=== PATIENT | female | born 1970 | race Caucasian/White ===

== ENCOUNTER → 2017-01-23 | Outpatient (CLI) | payer OTHER ==
[~2017-01-23] MED LIST: ALBUTEROL17 GM INH; NO MEDICATIONS; ZYRTEC10 M2
--- NOTE | ~2017-01-23 | CR169 ---
[facility]. [facility] A Service of [facility] & [facility] RADIOLOGY TEXT RESULTS PATIENT: KAVEH MARK LOCATION: [facility] : 68 UNIT #: [id number] AGE: [address]: TAI BRITO MD SEX: F ORDER DR: [id number] [place] [id number] MR#: [id number] Acc #: [id number] NAME: KAVEH MARK : 1970 SEX: F STUDY DATE/TIME: 01/23/2017 10:58 [facility] RO[facility]: STUDY DESCRIPTION: CR Knee 2 Views Lt Attending Physician: Tai Brito M.D. Referring Physician: Tai Brito M.D. Ordering Physician: Tai Brito M.D. Primary Care Physician: Dayton Avina M.D. MEDICAL IMAGING REPORT This report is preliminary unless electronic signature is present. EXAM Left knee 2 views 01/23/2017. HISTORY Left knee pain for 1 year. No known injury. Arthritis, unsteady gait. FINDINGS AP and lateral projection of the knee shows smooth articular anatomy without indication of fracture or dislocation at the major weight-bearing surface of the knee. There is no indication of radiopaque foreign body about the knee surface or joint effusion. IMPRESSION Normal knee. Dictated by... Sunday Aceves M.D. THIS IS AN ELECTRONICALLY VERIFIED REPORT Sunday Aceves M.D. at 01/24/2017 8:03 AM Angie TD: 01/23/2017 16:45 JOB #: [id number] MEDICAL IMAGING REPORT Page 1 of 1
--- NOTE | ~2017-01-23 | CR170 ---
[facility]. [facility] A Service of [facility] & [facility] RADIOLOGY TEXT RESULTS PATIENT: KAVEH MARK LOCATION: [facility] : 68 UNIT #: [id number] AGE: [address]: TAI BRTIO MD SEX: F ORDER DR: [id number] [place] [id number] O MR#: [id number] Acc #: [id number] NAME: KAVEH MARK : 1970 SEX: F STUDY DATE/TIME: 01/23/2017 10:58 [facility]: STUDY DESCRIPTION: CR Knee 2 Views Rt Attending Physician: Tai Brito M.D. Referring Physician: Tai Brito M.D. Ordering Physician: Tai Brito M.D. Primary Care Physician: Dayton Avina M.D. MEDICAL IMAGING REPORT This report is preliminary unless electronic signature is present. EXAM Right knee, 2 views, 01/23/2017. HISTORY Right knee pain for 1 year. Right knee osteoarthritis. Unsteady gait. FINDINGS AP and lateral projection of the knee shows smooth articular anatomy without indication of fracture or dislocation at the major weight-bearing surface of the knee. There is no indication of radiopaque foreign body about the knee surface or joint effusion. IMPRESSION Normal right knee. Dictated by... Sunday Aceves M.D. THIS IS AN ELECTRONICALLY VERIFIED REPORT Sunday Aceves M.D. at 01/24/2017 8:03 AM LEEANN/reed TD: 01/23/2017 17:06 JOB #: [id number] MEDICAL IMAGING REPORT Page 1 of 1
== END | disposition home or self-care (01) ==
LOC: SRAD 10:41
DX: M17.0 Bilateral primary osteoarthritis of knee (principal)
CPT/HCPCS: 73560